=== PATIENT | male | born 1995 ===

== ENCOUNTER 2018-04-21 20:40 | Inpatient (IN) | payer BC, OTHER ==
[~2018-04-21] VITALS: Ht 167.6 cm; Wt 68.0 kg
--- NOTE | 2018-04-21 20:00 | NUR ---
Start of Shift Note Received a 22 y/o male px, admitted for medically supervised withdrawal from ETOH. Px is also using methamphetamine and marijuana. No taper medications ordered. Px prefers the pronoun she/her. Last reported CIWA 7 by AM shift nurse. During the rounds at 1999, px is awake inside his room sitting on chair eating snack. Px appears anxious. Px is disheveled and odorous. Px stated that his anxiety is 10/10. Bilateral hand tremors noted. No more complaints at this moment. Bed on lowest position, side rails up 2x and call light within reach. We'll continue to monitor. Addendum: 04/22/18 at 2307 by FAROOQ CALVO RN wrong date posted
--- NOTE | 2018-04-21 21:45 | NUR ---
INTAKE ASSESSMENT BP: 126/66, HR: 65, RR:16, SpO2:97%, T:98.1 Pt is in stable condition and able to be admitted on the unit. Unit protocols regarding medications and vital signs Q4H were explained. Pt verbalized understanding. Will continue admission upon arrival on the unit.
[2018-04-21] MEDS ORDERED: BIOT10004 PO (22:04)
[2018-04-21] MEDS ORDERED: METH-406 PO (22:04)
[2018-04-21] MEDS ORDERED: ONDA4TAB5 GT (22:04)
[2018-04-21] MEDS ORDERED: QUET50TA PO (22:04)
[2018-04-21] MEDS ORDERED: HYDR50CA5 PO (22:04)
[2018-04-21] MEDS ORDERED: EMTR1TAB6 PO (22:04)
--- NOTE | 2018-04-21 22:25 | NUR ---
Admission Note Patient arrived at the unit at 2202. Patient is a 22 year old male who presents to [facility] for medically supervised withdrawal from ETOH. Patient also uses Crystal Meth and Marijuana. Patient prefers to use pronoun she or her. Patient requested to be full code and on regular diet. Patient reports PMH of Anxiety, Depression, Tonsillectomy, Gonorrhea and Ear tube in right ear (childhood). No seizure history. Patient takes Vistaril for her anxiety but none for depression . Patient was in [facility] and was transferred here because she was told that she needs more structured place. Patient ambulatory. Alert and oriented x 4. Patient presents with flat affect, depressed mood, emotional votality, anxiety and restless legs. She is homeless and unemployed at this time. Her Mom is her support system. Patient was asked why shes seeking for treatment . Patient verbalized Im here because I dont want to , I sick of being high , I want to be stable, I want to be happy. Patient states that the problem is ME. Im in this body but its not who I am. Some people dont understand my situation. Im planning to transition but I have to be stable first. Now Im willingly wants to change and Im serious . Substance History 1.Alcohol (Vodka )-started drinking at age 18. She drinks 2 Liters 2x a week/binge since January 2018. Last drink was 1 Liter 3 days ago on 04/18/18 2.Crystal Meth (inhalation) started using 2 weeks ago. She smokes 1 gram 4x a week for 2 weeks. Last use was 1 gram 3 days ago on 04/18/18 3.Marijuana (inhalation)-started using at age 19. Se smokes 1-2 grams daily since January 2018. Last use was 2 grams 2 days ago on 04/19/18 Treatment History 1.[facility] one day -04/20/18 2.[facility] 3 months ago Patients typical withdrawal symptom are anxiety, restless legs and insomnia. Patient She does not smoke. Patient had no history of suicide attempt no overdose, no 5710. Upon admission, CIWA is 5 due to anxiety, barely sweating and pins and needles sensation on both legs. No SI/HI. Patient brought home medications. She does not have PCP at this time. Patient oriented to surrounding and how to use call light. Explained smoking and unit policies . Q4hrs VS. Safety measures in place. Call light in reach. Will continue to monitor.
[2018-04-21] MEDS ORDERED: IBUPROFEN 400 MG TABLET PO PRN (22:45)
[2018-04-21] MEDS ORDERED: MIRALAX 17 GM POWD.PACK PO PRN (22:45)
[2018-04-21] MEDS ORDERED: LORAZEPAM 2 MG/1 ML VIAL IM PRN (22:45)
[2018-04-21] MEDS ORDERED: LORAZEPAM 1 MG TABLET PO PRN ×2 (22:45)
[2018-04-21] MEDS ORDERED: CLONIDINE HCL 0.1 MG TABLET PO PRN (22:45)
[2018-04-21] MEDS ORDERED: THIAMINE HCL 200 MG/2 ML VIAL IM ONE (22:45)
[2018-04-21] MEDS ORDERED: ONDANSETRON 4 MG/2 ML VIAL IM PRN (22:45)
[2018-04-21] MEDS ORDERED: diphenhydrAMINE 50 MG CAPSULE PO PRN (22:45)
[2018-04-21] MEDS ORDERED: ACETAMINOPHEN 325 MG TABLET PO PRN (22:45)
[2018-04-21] MEDS ORDERED: LOPERAMIDE HCL 2 MG CAPSULE PO PRN ×2 (22:45)
[2018-04-21] MEDS ORDERED: MAGNESIUM HYDROXIDE 30 ML LIQUID UDC PO PRN (22:45)
[2018-04-21] MEDS ORDERED: MAG HYDROX/AL HYDROX/SIMETH 30 ML LIQUID UDC PO PRN (22:45)
[2018-04-21] MEDS ORDERED: ONDANSETRON ODT 4 MG TAB.RAPDIS SL PRN (22:45)
[2018-04-21 22:51] LABS: BASOPHILS % (AUTO) 0.8 % (0.0-2.0); EOSINOPHILS # (AUTO) 0.1 K/uL (0.0-0.7); EOSINOPHILS % (AUTO) 2.3 % (0.0-7.0); HEMATOCRIT 46.9 % (36.7-47.1); HEMOGLOBIN 15.8 g/dL (12.5-16.3); LYMPHOCYTES # (AUTO) 2.3 K/uL (20.0-40.0); MEAN CORPUSCULAR HEMOGLOBIN 31.2 uug (23.8-33.4); MEAN CORPUSCULAR HGB CONC 34 g/dL (32.5-36.3); MEAN CORPUSCULAR VOLUME 92.7 fL (73.0-96.2); MONOCYTES # (AUTO) 0.5 K/uL (2.0-10.0); NEUTROPHILS # (AUTO) 2.8 K/uL (1.8-8.9); NEUTROPHILS % (AUTO) 47.9 % (31.5-64.5); PLATELET COUNT (AUTO) 266 K/uL (152-348); RED BLOOD CELL COUNT(AUTO) 5.06 MIL/uL (4.06-5.63); WHITE BLOOD COUNT (AUTO) 5.8 K/uL (3.6-10.2)
[2018-04-21 23:04] LABS: *AMPHETAMINE, URINE NEGATIVE (NEGATIVE); *BARBITURATE, URINE NEGATIVE (NEGATIVE); *CANNABINOID, URINE POSITIVE (NEGATIVE); *COCCAINE, URINE NEGATIVE (NEGATIVE); *OPIATE, URINE NEGATIVE (NEGATIVE); *PHENCYCLIDINE SCREEN,URINE NEGATIVE (NEGATIVE)
[2018-04-21 23:25] LABS: ETHANOL < 3 MG/DL (0-0)
[2018-04-21 23:33] LABS: ALANINE AMINOTRANSFERASE 26 U/L (16-63); ALKALINE PHOSPHATASE 50 U/L (50-136); AMYLASE 69 U/L (25-115); ASPARTATE AMINOTRANSFERASE 18 U/L (15-37); BILIRUBIN,TOTAL 1.3 mg/dL (0.2-1.0); CARBON DIOXIDE 27 mmol/L (21-32); CHLORIDE 103 mmol/L (98-107); GLUCOSE 108 mg/dL (74-106); LIPASE 212 U/L (73-393); MAGNESIUM 2.1 mg/dL (1.8-2.4); POTASSIUM 4.2 mmol/L (3.5-5.1); TOTAL PROTEIN, SERUM 6.7 g/dL (6.4-8.2); UREA NITROGEN, BLOOD 14 mg/dL (7-18)
--- NOTE | 2018-04-21 23:48 | NUR ---
PRN Vistaril and Benadryl administration Patient presents with anxiety and requests for sleep aid. Will monitor for effectiveness
[2018-04-21] MEDS: HYDROXYZINE PAMOATE 25 MG CAPSULE PO PRN (23:49)
[2018-04-22] VITALS: BP 107/58
--- NOTE | 2018-04-22 | NUR ---
CIWA assessment Patient anxious, pins and needles sensation on legs, difficulty sleeping and barely sweating. CIWA 5.
--- NOTE | 2018-04-22 00:48 | NUR ---
PRN Vistaril and Benadryl re-assessment Patient in bed with eyes closed. Respiration even and unlabored. Will Continue to monitor.
[2018-04-22 04:00] VITALS: BP 98/60
--- NOTE | 2018-04-22 04:00 | NUR ---
CIWA deferred Patient lying in bed with eyes closed. Respiration even and unlabored. Safety measures in place. Call light in reach. Will continue to monitor
--- NOTE | 2018-04-22 07:14 | NUR ---
End of shift note Patient slept 5 hours. Fluid intake 1,092 ml. Voided x 2. No BM. Monitored patient throughout shift. Patient presented with anxiety, barely sweating, pins and needles sensation on both legs, restless legs and insomnia. Patient was given PRN Vistaril and Benadryl. Safety measures in place. Call light in reach. Will continue to monitor. Patient refused pneumonia Vaccine and Vitamin B1 injection. Last CIWA 5.
--- NOTE | 2018-04-22 07:45 | NUR ---
START OF SHIFT Pt is a 22 y/o M who identifies as a F. Pt is admitted last night 04/22/182201 for medically supervised and monitoring of withdrawal from ETOH. Pt also has been using crystal meth and marijuana. Pt is A/Ox4, respirations even and unlabored. Pt has a flat affect, poor eye contact, depressive mood. Pt presents anxiety, agitation, sweating, restlessness, restless legs, higher emotional amplitude, difficulty sleeping, pins and needles sensations on the legs, anhedonia, dysporia. Educated pt on s/s to report and encouraged pt to verbalize feelings about situation; pt verbalized understanding. Side rails upx2 and padded, bed in low position. Call light within reach and safety measures in place. Will continue to monitor.
[2018-04-22 08:00] VITALS: BP 108/52
--- NOTE | 2018-04-22 08:00 | NUR ---
CIWA 8 Pt is A/Ox4, respirations even and unlabored. Pt has a flat affect, poor eye contact, depressive mood. Pt presents anxiety, agitation, sweating, restlessness, restless legs, higher emotional amplitude, difficulty sleeping, pins and needles sensations on the legs, anhedonia, and dysporia. Educated pt on s/s to report and encouraged pt to verbalize feelings about situation; pt verbalized understanding. Vistaril 50 po prn to be administered. Will continue to monitor.
[2018-04-22] MEDS ORDERED: TUBERCULIN,PURIF.PROT.DERIV. 5 TU/0.1 ML TEST ID ONE (09:00)
[2018-04-22] MEDS: THIAMINE HCL 100 MG TABLET PO SCH (09:52)
[2018-04-22] MEDS: MULTIVITAMINS,THERAPEUTIC TABLET PO SCH (09:52)
[2018-04-22] MEDS: FOLIC ACID 1 MG TABLET PO SCH (09:53)
[2018-04-22] MEDS: HYDROXYZINE PAMOATE 25 MG CAPSULE PO PRN ×2 (10:06→21:24)
--- NOTE | 2018-04-22 10:06 | NUR ---
PRN Vistaril 50 mg po prn given; pt states increased anxiety 7/10 with restlessness Will monitor and reassess..
--- NOTE | 2018-04-22 11:06 | NUR ---
REASSESSMENT Pt is sleeping in bed with eye closed. Respirations even and unlabored; RR 16. Will continue to monitor.
--- NOTE | 2018-04-22 12:29 | NUR ---
CIWA 6 Pt is awake and oriented x4, pt presents anxiety, agitation, restlessness and tremors are noted. Refuses prns. Encouraged pt to participate and attend groups. Will continue to monitor.
[2018-04-22 12:30] VITALS: BP 97/48
[2018-04-22] MEDS: PATIENT'S OWN MEDICATION PO SCH (14:18)
--- NOTE | 2018-04-22 15:21 | NUR ---
UPDATE ON PT PMH Pt has been diagnosed as having bipolar disorder and has not been taking medication. Pt's mother is the source of info. Pt's mother states, "he needs to be supervised and not be out there on his own."
[2018-04-22 16:00] VITALS: BP 96/59
--- NOTE | 2018-04-22 16:00 | NUR ---
ELAN 6 Pt is awake and oriented x4, pt presents anxiety, agitation, restlessness and tremors are noted. Pt is agitated stating multiple staff keeps asking him questions and knocking at his door. Refuses prns. Encouraged pt to participate and attend groups. Will continue to monitor. Addendum: 04/22/18 at 1705 by EARL HOYT RN ELAN 7
--- NOTE | 2018-04-22 18:41 | NUR ---
END OF SHIFT Pt has been isolative in room, withdrawn. Pt reports he has anxiety, 6/10; vistaril prn given and was effective. Pt's mother had called, reported pt has a hx of bipolar disorder and has not been taking medication. Pt ate 75/25/75% of meals. Fluid [id number], voided x3, bm x2. Safety measures in place. Endorsement will be given to poultry picker nurse.
[2018-04-22 20:00] VITALS: BP 118/79
--- NOTE | 2018-04-22 20:00 | NUR ---
CIWA 10 Px appears anxious. Px stated that his anxiety is 10/10. Bilateral hand tremors noted. We'll continue to monitor.
--- NOTE | 2018-04-22 20:00 | NUR ---
Start of Shift Note Received a 22 y/o male px, admitted for medically supervised withdrawal from ETOH. Px is also using methamphetamine and marijuana. No taper medications ordered. Px prefers the pronoun she/her. Last reported CIWA 7 by AM shift nurse. During the rounds at 1999, px is awake inside his room sitting on chair eating snack. Px appears anxious. Px is disheveled and odorous. Px stated that his anxiety is 10/10. Bilateral hand tremors noted. No more complaints at this moment. Bed on lowest position, side rails up 2x and call light within reach. We'll continue to monitor.
[2018-04-22] MEDS ORDERED: DIPH50CA37 PO (20:33)
[2018-04-22] MEDS ORDERED: QUETIAPINE FUMARATE 25 MG TABLET PO SCH (21:00)
--- NOTE | 2018-04-22 21:24 | NUR ---
PRN Vistaril Px received Vistaril 50 mg PO for increased anxiety. To reassess after an hour.
--- NOTE | 2018-04-22 22:25 | NUR ---
Reassessment of Anxiety During the reassessment, laura is awake on bed in fowlers position. Px stated that his anxiety improved a little from 10/10 to 7/10. We'll continue to monitor.
[2018-04-23] VITALS: BP 101/72
--- NOTE | 2018-04-23 | NUR ---
CIWA deferred CIWA deferred due to the px is asleep, to assess if the px is awake per doctor's order. We'll continue to monitor.
[2018-04-23 04:00] VITALS: BP 98/69
--- NOTE | 2018-04-23 04:00 | NUR ---
CIWA deferred CIWA deferred due to the px is asleep, to assess if the px is awake per doctor's order. We'll continue to monitor.
[2018-04-23 07:06] LABS: HEPATITIS B SURFACE AG Negative (Negative)
--- NOTE | 2018-04-23 07:10 | NUR ---
End of Shift Note During the shift at 2123, px received Vistaril 50 mg PO for anxiety. It was effective. Px oral intake is 1200 ml, voided 2x, with 2x BM. Px slept for 8 hours. Last CIWA 10. At 0630, px is asleep on bed in right side lying position. Bed on lowest position, side rails up 2x, and call light within reach. Px endorsed to AM shift nurse.
[2018-04-23 08:00] VITALS: BP 99/54
--- NOTE | 2018-04-23 08:00 | NUR ---
Start of Shift Notes/CIWA Assessment: Received patient in his room. Awake, alert and verbally responsive. Oriented x 4. Denies S/I or H/I noted. No AV hallucinations noted. Patient appeared tremulous, and sweaty. He complains "I'm just really really anxious about this discharge stuff." He was noted with sweaty palms and tremors felt on his hands. CIWA 10. Patient is a 22 year old transgender female admitted for ETOH withdrawal who was placed on PRNs and with pending discharge plans today. Educated patient on his current plan of care for the day and the discharge process. Reassurance and redirection provided. Per night report, patient ws given PRN Vistaril 50 mg. Last CIWA 10 and slept for 8 hours. Will continue to monitor.
[2018-04-23] MEDS: THIAMINE HCL 100 MG TABLET PO SCH (08:16)
[2018-04-23] MEDS: PATIENT'S OWN MEDICATION PO SCH (08:16)
[2018-04-23] MEDS: MULTIVITAMINS,THERAPEUTIC TABLET PO SCH (08:16)
[2018-04-23] MEDS: FOLIC ACID 1 MG TABLET PO SCH (08:16)
--- NOTE | 2018-04-23 10:03 | NUR ---
Transfer of Care: Endorsed patient to receiving nurse. All pertinent information discussed. Last CIWA 10 at 0800. No PRNs given. Patient with pending discharge today. Will continue to monitor.
--- NOTE | 2018-04-23 10:04 | NUR ---
ENDORSEMENT Pt endorsed to me. All information received.
[2018-04-23 12:00] VITALS: BP 137/90
--- NOTE | 2018-04-23 12:00 | NUR ---
CIWA ASSESSMENT ciwa=8. Anxious and restless. Pressured speech noted. Easily agitated and irritable. Bilateral hand tremors noted.
--- NOTE | 2018-04-23 14:24 | NUR ---
DISCHARGE Pt 22 y/o transgender female admitted for etoh withdrawal. Alert and oriented to name, place, and time. Perrla. Skin warm and dry to touch. Respirations even and unlabored. Appears disheveled. Encouraged to maintain hygiene. VS wnl. Denies any SI/ HI. No belongings in cassette or cabinet noted. Prescriptions, home medications, and discharge papers packed in pt bag. Pt discharged to [facility] via private transport. No distress noted. Addendum: 04/23/18 at 1620 by KENNETH VALLEJO RN Incorrect DC location Pt discharged to [facility].
== END 2018-04-23 14:23 | disposition other institution (70) | DRG 895 ==
LOC: SRC 21:06
PROVIDERS: ADMIT Family Medicine Addiction Medicine; ATTEND Family Medicine Addiction Medicine
PROC: HZ2ZZZZ Detoxification Services for Substance Abuse Treatment (ICD-10-PCS; principal; 2018-04-21)
PROC: HZ51ZZZ Individual Psychotherapy for Substance Abuse Treatment, Behavioral (ICD-10-PCS; 2018-04-23)
DX: F15.23 Other stimulant dependence with withdrawal (principal); F10.230 Alcohol dependence with withdrawal, uncomplicated; Y90.9 Presence of alcohol in blood, level not specified; F41.9 Anxiety disorder, unspecified; F12.10 Cannabis abuse, uncomplicated; Z59.0 Homelessness; Z79.899 Other long term (current) drug therapy; F64.8 Other gender identity disorders; F32.9 Major depressive disorder, single episode, unspecified; Z59.1 Inadequate housing
CPT/HCPCS: 36415; 80307; 80349; 83690; 83735; 84443; 85025; 86592; 86705; 86803; 87340; 87806; A4663; G0480; Q0163